=== PATIENT | female | born 1970 | race American Indian/Alaskan Native ===

== ENCOUNTER 2017-06-29 05:57 | Day surgery (SDC) | payer OTHER ==
[~2017-06-29 05:57] MED LIST: ACD-A 500 ML IV ONE; WATER FOR IRRIG STERILE IR ONE
[2017-06-29] MEDS ORDERED: NACL BACTERIOSTATIC INFILTRATI ONE (06:34)
[2017-06-29 07:14] LABS: Basophils % (Auto) 0.7 % (0.0-1.8); Eosinophils # (Auto) 0.1 K/mm3 (0.0-0.4); Eosinophils % (Auto) 1.9 % (0.0-4.3); Hematocrit 34.4 % (30.3-42.9); Hemoglobin 11.8 gm/dl (10.1-14.3); Lymphocytes # (Auto) 1.7 K/mm3 (1.2-5.4); Lymphocytes % (Auto) 42.8 % (13.4-35.0); Mean Corpuscular HGB Conc 35 % (30-34); Mean Corpuscular Hemoglobin 30 pg (28-32); Mean Corpuscular Volume 88 fl (79-97); Monocytes # (Auto) 0.4 K/mm3 (0.0-0.8); Monocytes % (Auto) 9.6 % (0.0-7.3); Platelet Count 244 K/mm3 (140-440); Red Cell Distribution Width 15.3 % (13.2-15.2)
[2017-06-29 07:19] LABS: BUN/Creatinine Ratio 13; Blood Urea Nitrogen 9 mg/dL (7-17); Calcium 8.7 mg/dL (8.4-10.2); Hemolysis Index 6
--- NOTE | 2017-06-29 07:26 | Anesthesia Consultation ---
Anesthesia Consult and Med Hx Date of service: 06/29/17 - Airway Anesthetic Teeth Evaluation: Good, Crowns ROM Head & Neck: Adequate Mental/Hyoid Distance: Adequate Mallampati Class: Class I Intubation Access Assessment: Good - Pulmonary Exam CTA: Yes - Cardiac Exam Cardiac Exam: RRR - Pre-Operative Health Status ASA Pre-Surgery Classification: ASA2 Proposed Anesthetic Plan: General - Central Nervous System Hx Psychiatric Problems: No - Other Systems Hx Alcohol Use: Yes (OCC) Hx Substance Use: Yes (MARIJUANA) Hx Cancer: No - Additional Comments Anesthesia Medical History Comments: patient says sje is scheduled for lumpectomy. to speak with surgeon
--- NOTE | 2017-06-29 07:26 | Anesthesia Day of Surgery ---
Anesthesia Day of Surgery - Day of Surgery Patient Examined: Yes Patient H&P Reviewed: Yes Patient is NPO: Yes
[2017-06-29] MEDS ORDERED: DIPRIVAN 10 MG/ML IV ONE (07:29)
[2017-06-29] MEDS ORDERED: TRANSDERM-SCOP TD NR (08:00)
[2017-06-29] MEDS ORDERED: VERSED IV NR (08:00)
[2017-06-29] MEDS ORDERED: LACTATED RINGERS 1,000 ML IV SCH (08:00)
[2017-06-29] MEDS ORDERED: PEPCID IV NR (08:00)
[2017-06-29] MEDS ORDERED: DILAUDID IV PRN (08:00)
[2017-06-29] MEDS ORDERED: NACL 0.9% 1000 ML 1,000 ML IV SCH (08:00)
[2017-06-29] MEDS ORDERED: XYLOCAINE 1% 20 mL ONE (08:20)
[2017-06-29] MEDS ORDERED: MARCAINE 0.25% INFILTRATI ONE ×2 (08:20→08:44)
[2017-06-29] MEDS ORDERED: DILAUDID ONE (08:26)
[2017-06-29] MEDS ORDERED: XYLOCAINE 1% 20 mL INFILTRATI ONE (08:44)
[2017-06-29] MEDS ORDERED: DECADRON ONE (09:11)
[2017-06-29] MEDS ORDERED: ZOFRAN ONE (09:11)
[2017-06-29] MEDS ORDERED: XYLOCAINE MPF 2% ONE (09:11)
[2017-06-29] MEDS ORDERED: WATER FOR IRRIG STERILE IR ONE (09:21)
--- NOTE | 2017-06-29 09:44 | Short Stay Summary ---
Short Stay Documentation Date of service: 06/29/17 - History H&P: obtained from office - Allergies and Medications Current Medications: Allergies No Known Allergies Allergy (Verified 06/28/17 11:29) Home Medications Medication Instructions Recorded Confirmed Last Taken Type No Known Home Medications [No 06/28/17 06/28/17 Unknown History Reported Home Medications] Active Medications Famotidine (Pepcid) 20 mg IV PREOP NR Stop: 06/29/17 14:00 Last Admin: 06/29/17 07:58 Dose: 20 mg Hydromorphone HCl (Dilaudid) 0.5 mg IV Q10MIN PRN PRN Reason: Pain , Severe (7-10) Stop: 06/29/17 14:00 Lactated Ringer's (Lactated Ringers) 1,000 mls @ 100 mls/hr IV DIRECT JACEK Sodium Chloride (Nacl 0.9% 1000 Ml) 1,000 mls @ 100 mls/hr IV DIRECT JACEK Last Admin: 06/29/17 07:40 Dose: 100 mls/hr Midazolam HCl (Versed) 2 mg IV PREOP NR Stop: 06/29/17 23:59 Last Admin: 06/29/17 08:38 Dose: 2 mg Scopolamine (Transderm-Scop) 1 each TD PREOP NR Stop: 06/29/17 13:00 Last Admin: 06/29/17 07:58 Dose: 1 each - Brief post op/procedure progress note Date of procedure: 06/29/17 Pre-op diagnosis: Left breast cancer of the upper outer quadrant Post-op diagnosis: same Procedure: Ultrasound guided left partial mastectomy Anesthesia: GETA Findings: Left breast mass and clip present within radiograph specimen Surgeon: RAFFAELE SALCIDO Head Stock Transfer Clerk: STEWART STEELE Estimated blood loss: minimal Pathology: list (left partial mastectomy) Specimen disposition: to lab Condition: stable - Disposition Condition at discharge: Good Disposition: DC-01 TO HOME OR SELFCARE Short Stay Discharge Plan Activity: other (no heavy lifting) Diet: regular Wound: other (keep incision clean and dry; may shower in 24 hours; no baths, pools or lakes; wear a supportive bra) Follow up with: GIANNI AZEVEDO [Other] - 7 Days RAFFAELE SALCIDO MD [Staff Physician] - 7 Days
--- NOTE | 2017-06-29 10:00 | Operative Report ---
Operative Report Operative Report: Date of Service: June 29, 2017 Preoperative diagnosis: Left breast cancer of the upper outer quadrant Postoperative diagnosis: Same Procedure: Right partial mastectomy of the upper outer quadrant Surgeon: Halie Meyer MD Iron Caster: Liliam Neville DO Anesthesia: General Findings: Left breast mass and clip present within radiograph specimen Complications: None EBL: Minimal Disposition: PACU in good condition Indications for operative procedure: This is a 46 year old lady with left breast cancer of the upper outer quadrant, Stage I [id number] ER positive. Recommendations are to proceed with a left partial mastectomy and SLNB. She refused axillary lymph node biopsy, discussed the importance of SLNB for breast cancer staging and she understands that not proceeding with SLNB is not following breast cancer guidelines. Patient wished to proceed with left partial mastectomy, she was diagnosed with left breast cancer in June 2016 and has been noncompliant with her breast cancer care. Procedure in detail: Patient was then taken to the operating room. Gen. anesthesia was administered. The left breast and axilla were prepped and draped in the normal sterile operative fashion. Timeout was performed. Using high frequency probe ultrasound, left breast cancer mass was identified at the 3:00 position 2-3 cm from the nipple with appropriate markings made, left breast cyst versus solid lesion at the 3:30 position 4 cm from the nipple was noted as well and marked for area of incision. Attention was then taken towards the left breast. Known breast cancer mass at the 3:00 position 2-3 cm from the nipple was identified. Lateral breast incision was made at the 3:00 positin with a 15 blade knife and dissection taken down to subcutaneous tissues. First began raising of the superior flap with dissection take down to the pectoralis muscle, followed by raising of the inferior flap, lateral flap and medial flap with all flaps taken down to the pectoralis muscle. The breast area of concern was appropriately removed posteriorly from the pectoralis muscle with the aid of the Bovie cautery. Specimen was marked and then sent to pathology and radiology; radiograph specimen with clip and mass present; ultrasound with breast cancer mass and additional nodule at the 3:30 position present. Breast cavity was irrigated and hemostasis was obtained. The posterior deep breast tissues were approximated and closed using interrupted 3-0 Vicryl. The subcutaneous tissues were approximated and closed using interrupted 3-0 Vicryl followed by closing of the skin with a running 4-0 Monocryl and skin affix. The patient tolerated surgery very well and she was awaken from anesthesia without any complication and transported to PACU in good condition.
[2017-06-29] MEDS ORDERED: NORCO 5/325 PO SCH (10:19)
--- NOTE | 2017-06-29 10:59 | Mammography Report ---
SPECIMEN RADIOGRAPH LEFT BREAST: 06/29/17 05:57:00 CLINICAL: Surgical excision of a known cancer. FINDINGS: The targeted mass with the biopsy clip is identified within the specimen. IMPRESSION: Excision of the targeted lesion.
[2017-06-29] MEDS ORDERED: ANCEF/STERILE WATER 2 GM/20 ML IV NR (11:00)
--- NOTE | 2017-06-29 11:43 | Post Anesthesia Evaluation ---
- Post Anesthesia Evaluation Patient Participated: Yes Airway Patent: Yes Stable Respiratory Function: Yes Nausea/Vomiting: No Temp > 96.8F: Yes Pain Manageable: Yes Adequeate Hydration: Yes Anesthesia Complications: No
[2017-06-29 12:10] VITALS: BP 132/79
== END 2017-06-29 11:14 | disposition home or self-care (01) ==
LOC: OR 05:57
PROVIDERS: ATTEND Surgery
DX: C50.412 Malignant neoplasm of upper-outer quadrant of left female breast (principal); Z80.3 Family history of malignant neoplasm of breast
CPT/HCPCS: 19301; 36415; 76098; 80048; 81025; 85025; 88307; J1100; J1170; J2250; J2405; J2704; J7030

== ENCOUNTER 2019-01-22 10:51 | Outpatient (CLI) | payer OTHER ==
--- NOTE | 2019-01-24 10:22 | Magnetic Resonance Report ---
BILATERAL BREAST MR WITHOUT AND WITH GADOLINIUM INDICATION: History of left breast cancer status post left partial mastectomy. She was initially see n at [facility] and refused radiation therapy. COMPARISONS: 01/11/2017 TECHNIQUE: Axial 1.0 mm T1 without, axial high-resolution 2.0 mm T2 and axial 1.0 mm dynamic vibrant high-resolution postcontrast T1 fat saturation sequences on a 1.5 Marci magnet. The examination was p erformed with an 8-channel dedicated [place] breast coil. Post-processing with CAD and subtraction was performed on an [employer] workstation. 20 cc of MultiHance was injected without incident for the con trast portion of the exam. Consent was obtained prior to the administration of the contrast. FINDINGS: RIGHT BREAST: Minimal background parenchymal enhancement. No mass or suspicious enhancement. Multiple benign cysts. The largest is at 9:00 and measures 2.5 cm. A stable 7 mm benign intraparenchymal lymp h node at 10:00. No suspicious right axillary or right internal mammary lymph nodes. LEFT BREAST: Minimal background parenchymal enhancement. No mass or suspicious enhancement. No suspic ious left axillary or left internal mammary lymph nodes. IMPRESSION: Negative study with no evidence of malignancy. Recommend routine mammographic screening. BI-RADS Category 2: Benign Signer Name: Reji Lopez MD Signed: 01/24/2019 10:17 AM Workstation Name: [id number]
== END 2019-01-22 10:52 | disposition home or self-care (01) ==
LOC: SPVIMAG 10:51
PROVIDERS: ATTEND Surgery
DX: R92.2 Inconclusive mammogram (principal); Z85.3 Personal history of malignant neoplasm of breast; Z90.12 Acquired absence of left breast and nipple
CPT/HCPCS: A9577; C8908; 77049

== ENCOUNTER 2020-02-06 09:55 | Outpatient (CLI) | payer OTHER ==
--- NOTE | 2020-02-06 13:41 | Magnetic Resonance Report ---
Bilateral breast MRI with and without contrast. History: Personal history of left breast cancer Procedure: Axial T1 and T2-weighted fat-sat images were obtained precontrast. 12 cc MultiHance was i njected intravenously and serial axial T1-weighted images with fat saturation were obtained postcontr ast. 3-D MIP projections, Kinetic analysis and subtraction imaging was utilized to evaluate. A Verida itzel 8 channel breast coil was utilized for image acquisition. Comparison: MR breast 01/11/2017 and 01/22/2019, bilateral mammogram 05/22/2018 Findings: Background level of enhancement is mild. No suspicious axillary or clavicular nodes are identified. No abnormal bone marrow signal is seen. No significant chest wall enhancement is noted. Right breast: Lymph node is again seen laterally without change. Moderate benign-appearing stippled e nhancement is noted. Fibrocystic changes are seen. The large cysts in the lateral mid breast on previ ous examination are no longer readily apparent. Only minimal cystic change is seen in this area. Surr ounding this residual minimal cyst in the lateral mid breast at approximately 9:30 is a 1.3 cm area o f mild patchy nonmass-like enhancement with slightly heterogenous kinetics. This is approximately 2.7 cm from the nipple, 1.8 cm from the chest wall, and 9 mm from the lateral skin surface. Some of this may be vascular. Left breast: Moderate proliferative changes are seen. Surgical changes are noted. No significant de leon ges are noted. Impression: 1. Previous large cyst on the right are no longer seen. I have a history of prior left cyst aspiratio n according to the provided information. Possibly there has been aspiration on the right and if this is recent the surrounding new mild patchy enhancement could be related to the procedure. Correlation with procedural history is suggested. If there has been no recent procedure in this area, targeted ma mmography and ultrasound may be useful. 2. No significant change is seen in the left breast. BIRADS: 0: Incomplete - needs additional imaging evaluation Signer Name: Barak Clements MD Signed: 02/06/2020 1:36 PM Workstation Name: [id number]
== END 2020-02-06 09:56 | disposition home or self-care (01) ==
LOC: SPVIMAG 09:55
PROVIDERS: ATTEND Surgery
DX: R92.8 Other abnormal and inconclusive findings on diagnostic imaging of breast (principal); R59.0 Localized enlarged lymph nodes; Z85.3 Personal history of malignant neoplasm of breast
CPT/HCPCS: A9577; C8908; 77049

== ENCOUNTER 2020-02-19 10:30 | Outpatient (CLI) | payer OTHER ==
--- NOTE | 2020-02-20 08:24 | Ultrasound Report ---
RIGHT BREAST ULTRASOUND INDICATION: Patient with history of left breast cancer and abnormal finding in the right breast on re cent MRI. COMPARISON: 02/06/2020, 01/22/2019. FINDINGS: A targeted ultrasound of the right lateral breast was performed to assess for sonographic correlate o f a previously noted area of focal nonmasslike enhancement within the right breast at the 9:30 positi on at middle depth. No sonographic correlate is seen to the abnormal enhancement identified in this r egion. Multiple incidental findings are noted in this region including a 5 x 5 x 3 mm suspected intra mammary lymph node at the 8:00 position, 3 cm from the nipple. Additionally, there are multiple simpl e and minimally complicated cysts which would correspond with the findings seen on the MRI in this re gion. The largest of these measures up to 8 x 3 x 7 mm at the 10:00 position, 2 cm from the nipple. A n intramammary lymph node within upper limits of cortical thickness is noted at the 11:00 position, 5 cm from nipple. This is unchanged from 2019 MRI. IMPRESSION: No sonographic correlate is identified to the focal area of nonmasslike enhancement noted in the righ t breast at the 9:30 position. The recent MRI shows a focal central area of low T1 signal in this reg ion which may represent biopsy marker artifact. If the patient has had a recent cyst aspiration at th e site (within 6 weeks), the enhancement may represent post procedure changes and a follow-up MRI in 3-4 months would be recommended. If there have been no procedures in this region recently, an MRI glen ded biopsy is recommended. BI-RADS Category 4: Suspicious for Malignancy. Signer Name: Lazaro Hernández MD Signed: 02/20/2020 8:19 AM Workstation Name: [id number]
== END 2020-02-19 10:31 | disposition home or self-care (01) ==
LOC: SPVWC 10:30
PROVIDERS: ATTEND Surgery
DX: N60.01 Solitary cyst of right breast (principal); I88.9 Nonspecific lymphadenitis, unspecified; Z85.3 Personal history of malignant neoplasm of breast